=== PATIENT | female | born 1995 | race Two or more races ===

== ENCOUNTER 2018-01-29 13:29 | Emergency (ER) | payer MEDICAID ==
[~2018-01-29] VITALS: Ht 152.4 cm; Wt 43.1 kg
[2018-01-29 13:29] VITALS: BP 116/65
== END 2018-01-29 14:41 | disposition home or self-care (01) ==
LOC: ER 13:54
DX: S70.02XA Contusion of left hip, initial encounter (principal); S70.01XA Contusion of right hip, initial encounter; S20.219A Contusion of unspecified front wall of thorax, initial encounter; S00.81XA Abrasion of other part of head, initial encounter; Z60.2 Problems related to living alone; V49.59XA Passenger injured in collision with other motor vehicles in traffic accident, initial encounter; Y93.89 Activity, other specified; Y92.410 Unspecified street and highway as the place of occurrence of the external cause; Y99.8 Other external cause status
CPT/HCPCS: 99283; A4606; Z7610